=== PATIENT | male | born 1985 | race Caucasian/White ===

== ENCOUNTER 2016-10-13 04:07 | Emergency (ER) | payer BC ==
--- NOTE | 2016-10-13 04:49 | ERNOTE ---
Time Seen by Provider: 10/13/16 04:40 Stated Complaint: "LUNGS, THINK PNUEMONIA" Presenting Symptoms:: cough Source: patient Exam Limitations: no limitations Immunizations: IMMUNIZATION HX Immunizations Up to Date Yes History of Influenza Vaccine Yes Hx Pneumococcal Vaccination No Allergies/Adverse Reactions: Allergies No Known Drug Allergies Allergy (Verified 10/13/16 04:16) Home Medications: HOME MEDICATIONS NK [No Home Medication] 10/13/16 [Last Taken Unknown] - History of Present Ilness Narrative: Pt has had a cough for 3-4 days. Woke up in the middle of the night and felt short of breath. Timing: getting worse Severity: moderate Frequency/Possible Cause: Reports: no prior episodes Modifying Factors - Improves: Reports: albuterol Modifying Factors - Worsens: Reports: activity, lying down Associated Symptoms: Denies: nasal congestion, nasal drainage Review of Systems - Review of Systems Constitutional: Absent: recent illness EYE: Present: no symptoms reported ENT: Absent: nose congestion, nasal drainage, sore throat Respiratory: Present: See HPI Cardiology: Absent: chest pain Gastrointestinal/Abdominal: Present: vomiting - after coughing this am. Absent : nausea Genitourinary: Present: no symptoms reported Musculoskeletal: Present: no symptoms reported Skin: Present: no symptoms reported Neurological: Present: no symptoms reported Endocrine: Present: no symptoms reported Hematologic/Lymphatic: Present: no symptoms reported - Patient's Past Medical History Patient History - Medical: No pertinent hx Patient History - Cardiac/Respiratory: No pertinent hx Patient History - Cancer: No Hx of Cancer Patient History - Surgical Procedures: No surgical history Patient History - Other: None - Social History Living Situations: home Psych History: No pertinent hx Smoking Status: Current every day smoker Alcohol Use: occasionally Drug Use: none - Immunizations Immunizations Up to Date: Yes Hx Pneumococcal Vaccination: No History of Influenza Vaccine: Yes Physical Exam - Physical Exam General Appearance: Present: wd/wn, alert, no apparent distress Eye Exam: Normal inspection: bilateral Ears, Nose, Throat: Present: normal ENT inspection Neck: Present: normal inspection, nontender Respiratory: Present: no respiratory distress, other - coarse lung sounds right lung, no wheezes or ronchi Back Exam: Present: normal inspection, normal range of motion Extremity Exam: Present: normal inspection, normal range of motion, no edema Neurological Exam: Present: alert, oriented, normal mood/affect Skin Exam: Present: normal color, warm/dry Lymphatic Exam: Present: no adenopathy ED Progress - Results and Orders Patient's Lab Results:: I have reviewed the patient's lab results. Results and Orders: Laboratory Tests 10/13/16 04:48 WBC 7.3 Hgb 14.9 Hct 42.4 Plt Count 188 Monocytes % 9.3 H Eosinophils % 3.8 H - Vital Signs Patient's Vital Signs:: I have reviewed the patient's vital signs. Vital Signs: Vital Signs 10/13/16 04:11 Temperature 36.3 C L Pulse Rate 82 Respiratory 18 Rate Blood Pressure 150/99 O2 Sat by Pulse 95 Oximetry - X-Ray X-Ray #1 X-Ray: chest Interpretation: Interp. by me X-ray Comments: Mild peribronchial cuffing suggesting bronchitis. No infiltrate or effusion - Progress/Reassessment Chief Complaint: Cough Departure - Departure Clinical Impression: Bronchitis Disposition: Home self-care Condition: Good Instructions: Acute Bronchitis, [id number] Referrals: Tremaine Hairston DO [Primary Care Provider] -
[2016-10-13 05:14] LABS: Hematocrit 42.4 % (42.0-52.0); Hemoglobin 14.9 gm/dL (13.5-18.0); Mean Cell Volume 88.1 fl (78-100); Mean Corpuscular Hgb Conc 35.1 g/dl (32-36); Mean Platelet Volume 9.5 fl (6.0-9.5); Neutrophil # 4.5 K/mm3 (1.3-6.0); Platelet Count 188 K/mm3 (150-450); Red Blood Count 4.81 M/mm3 (4.7-6.0); Red Cell Distribution Width 11.9 % (11.5-14.0); White Blood Count 7.3 K/mm3 (4.0-10.5)
[2016-10-13] MEDS ORDERED: METHYLPREDNISOLONE ACETATE 80 MG/ML VIAL IM ONE (05:34)
[2016-10-13] MEDS ORDERED: DEXAMETHASONE SOD PHOSPHATE 10 MG/ML VIAL IM ONE (05:34)
[2016-10-13] MEDS ORDERED: DEXAMETHASONE SOD PHOSPHATE 10 MG/ML VIAL ONE (05:38)
[2016-10-13] MEDS ORDERED: METHYLPREDNISOLONE ACETATE 80 MG/ML VIAL ONE (05:38)
[2016-10-13 05:45] VITALS: BP 120/75
== END 2016-10-13 05:45 | disposition home or self-care (01) ==
LOC: ER 04:07
DX: J20.9 Acute bronchitis, unspecified (principal); F17.200 Nicotine dependence, unspecified, uncomplicated